=== PATIENT | female | born 1965 | race American Indian/Alaskan Native ===

== ENCOUNTER 2018-05-19 09:28 | Emergency (ER) | payer SELFPAY ==
--- NOTE | 2018-05-19 09:40 | Emergency Department Report ---
- General Stated complaint: HYPERTENSION/ALTERED MENTAL STATUS Time Seen by Provider: 05/19/18 09:30 Source: EMS Mode of arrival: Stretcher Limitations: Altered Mental Status - History of Present Illness Initial comments: Patient is a 52-year-old female presents to emergency room with generalized weakness, dry mouth, dizziness and restless leg. Patient answers all questions appropriately however patient is unable to remember all details and speak clearly. Patient denies chest pain/shortness of breath. Patient denies abdominal pain and fever. Patient denies diaphoresis. Patient states the symptoms started at 8:15. Per EMS patient was found to be tachycardic. MD Complaint: generalized weakness -: Sudden Location: generalized Severity: mild Consistency: constant Improves with: none Worsens with: none Associated Symptoms: confusion. denies: chest pain, dark stools, diaphoresis, dysuria, easy bruising, fever/chills, headaches, loss of appetite, nausea/ vomiting, myalgias, rash, shortness of breath, syncope - Related Data Home Medications Medication Instructions Recorded Confirmed Last Taken RX: No Known Home Medications [No 05/19/18 05/19/18 Unknown Reported Home Medications] Allergies Allergy/AdvReac Type Severity Reaction Status Date / Time No Known Allergies Allergy Unverified 05/19/18 09:40 ED Review of Systems ROS: Stated complaint: HYPERTENSION/ALTERED MENTAL STATUS Other details as noted in HPI Constitutional: weakness. denies: chills, fever Eyes: denies: eye pain, eye discharge, vision change ENT: denies: ear pain, throat pain Respiratory: denies: cough, shortness of breath, wheezing Cardiovascular: denies: chest pain, palpitations Endocrine: no symptoms reported, other (dry mouth) Gastrointestinal: denies: abdominal pain, nausea, diarrhea Genitourinary: denies: urgency, dysuria, discharge Musculoskeletal: denies: back pain, joint swelling, arthralgia Skin: denies: rash, lesions Neurological: weakness, vertigo. denies: headache, paresthesias Psychiatric: denies: anxiety, depression Hematological/Lymphatic: denies: easy bleeding, easy bruising ED Past Medical Hx - Past Medical History Previous Medical History?: No - Surgical History Past Surgical History?: No - Family History Family history: no significant - Social History Smoking Status: Never Smoker Substance Use Type: None - Medications Home Medications: Home Medications Medication Instructions Recorded Confirmed Last Taken Type RX: No Known Home Medications [No 05/19/18 05/19/18 Unknown History Reported Home Medications] ED Physical Exam - General Limitations: No Limitations General appearance: alert, in no apparent distress - Head Head exam: Present: atraumatic, normocephalic - Eye Eye exam: Present: normal appearance - ENT ENT exam: Present: mucous membranes moist - Neck Neck exam: Present: normal inspection - Respiratory Respiratory exam: Present: normal lung sounds bilaterally. Absent: respiratory distress - Cardiovascular Cardiovascular Exam: Present: regular rate, normal rhythm. Absent: systolic murmur, diastolic murmur, rubs, gallop - GI/Abdominal GI/Abdominal exam: Present: soft, normal bowel sounds - Extremities Exam Extremities exam: Present: normal inspection - Back Exam Back exam: Present: normal inspection - Neurological Exam Neurological exam: Present: alert, oriented X3 - Skin Skin exam: Present: warm, dry, intact, normal color. Absent: rash - Assessment Assessment Interval: Baseline - Level of Consciousness 1a. Level of Consciousness: alert - LOC Questions 1b. LOC Questions: answers correctly - LOC Command 1c. LOC Commands: performs tasks correctly - Best Gaze 2. Best Gaze: normal - Visual 3. Visual: no visual loss - Facial Palsy 4. Facial Palsy: normal symmetrical movement - Motor Arm 5b. Motor Arm Right: no drift 5a. Motor Arm Left: no drift - Motor Leg 6a. Motor Leg Left: no drift 6b. Motor Leg Right: amputation - Limb Ataxia 7. Limb Ataxia: absent - Sensory 8. Sensory: normal - Best Language 9. Best Language: no aphasia (score 1) - Dysarthria 10. Dysarthria: mild/moderate dysarthria - Extinction and Inattention 11. Extinction/Inattention: no abnormality ED Course Vital Signs 05/19/18 05/19/18 05/19/18 09:38 09:40 09:52 Temperature 97.5 F L Pulse Rate 121 H Respiratory 18 Rate Blood Pressure 155/83 Blood Pressure [Right] O2 Sat by Pulse 97 100 100 Oximetry 05/19/18 05/19/18 05/19/18 10:00 10:16 10:30 Temperature Pulse Rate 114 H 114 H 112 H Respiratory 10 L 14 14 Rate Blood Pressure Blood Pressure [Right] O2 Sat by Pulse 100 98 99 Oximetry 05/19/18 05/19/18 05/19/18 10:45 11:00 11:01 Temperature Pulse Rate 115 H 119 H Respiratory 14 18 Rate Blood Pressure 131/78 Blood Pressure 131/78 [Right] O2 Sat by Pulse 100 98 100 Oximetry 05/19/18 05/19/18 05/19/18 11:15 11:31 11:45 Temperature Pulse Rate Respiratory Rate Blood Pressure 131/78 131/78 131/78 Blood Pressure [Right] O2 Sat by Pulse 98 98 99 Oximetry 05/19/18 05/19/18 05/19/18 12:01 12:33 13:31 Temperature Pulse Rate 107 H Respiratory 18 Rate Blood Pressure 131/78 128/81 Blood Pressure 128/81 [Right] O2 Sat by Pulse 98 100 98 Oximetry - Reevaluation(s) Reevaluation #1: Due to the patient's complaints and symptoms, code stroke called. 05/19/18 09:30 - Consultations Consultation #1: tele- neuro consulted. Dr. Hawkins to see pt 05/19/18 10:30 Dr Hawkins thinks that this is transient global amnesia secondary to her vitamin supplement of nitric oxide. Round recommends admission and MRI. 05/19/18 11:15 Consultation #2: Posturals consult for admission. Hospitalist admit patient. Dr manzo to assume care. 05/19/18 12:00 ED Medical Decision Making - Lab Data Result diagrams: 05/19/18 10:06 05/19/18 10:06 - EKG Data -: EKG Interpreted by [facility] EKG shows normal: sinus rhythm, axis, intervals, QRS complexes, ST-T waves Rate: normal - Radiology Data Radiology results: report reviewed CT HEAD WITHOUT CONTRAST: HISTORY: Neurological deficit. TECHNIQUE: Sequential 2.5mm CT images. COMPARISON: none. FINDINGS: Cerebral Parenchyma: Within normal limits. Cerebellum: Within normal limits. Brainstem: Within normal limits. Ventricles: Normal. Sella: Normal. Extra-axial spaces: Normal. Basal Cisterns: Normal. Intracranial Hemorrhage: None. Midline Shift: None. Calvarium: Normal. Sinuses: Normal. Mastoid Air Cells: Normal. Visualized Orbits: Normal. IMPRESSION: Cranial CT scan within normal limits. These findings were discussed with Dr. Ortega in the emergency department at 0955 hours. Transcribed By: TTR Dictated By: AMINA KEENE JR, MD Electronically Authenticated By: AMINA KEENE JR, MD Signed Date/Time: 05/19/18 0956 - Medical Decision Making She is a 52-year-old female presents to emergency room for weakness and dizziness. Patient found to have transient global amnesia secondary to a over- the-counter supplements. Neurology was consulted and gave instructions and recommendations. Patient to be admitted to hospitalist service for further evaluation treatment. - Differential Diagnosis cva. dizziness, weakness. Critical Care Time: Yes Critical care attestation.: If time is entered above; I have spent that time in minutes in the direct care of this critically ill patient, excluding procedure time. Critical Care Time: 35 minutes for cc time ED Disposition Clinical Impression: Transient global amnesia, Dizziness, Weakness Disposition: -09 OP ADMIT IP TO THIS HOSP Is pt being admited?: Yes Does the pt Need Aspirin: No Condition: Critical Time of Disposition: 11:18
--- NOTE | 2018-05-19 10:02 | Cat Scan Report ---
CT HEAD WITHOUT CONTRAST: HISTORY: Neurological deficit. TECHNIQUE: Sequential 2.5mm CT images. COMPARISON: none. FINDINGS: Cerebral Parenchyma: Within normal limits. Cerebellum: Within normal limits. Brainstem: Within normal limits. Ventricles: Normal. Sella: Normal. Extra-axial spaces: Normal. Basal Cisterns: Normal. Intracranial Hemorrhage: None. Midline Shift: None. Calvarium: Normal. Sinuses: Normal. Mastoid Air Cells: Normal. Visualized Orbits: Normal. IMPRESSION: Cranial CT scan within normal limits. These findings were discussed with Dr. Ortega in the emergency department at 0955 hours.
[2018-05-19 10:30] LABS: Basophils % (Auto) 0.5 % (0.0-1.8); Eosinophils % (Auto) 0.6 % (0.0-4.3); Hematocrit 37.1 % (30.3-42.9); Hemoglobin 12.3 gm/dl (10.1-14.3); Lymphocytes # (Auto) 1.5 K/mm3 (1.2-5.4); Lymphocytes % (Auto) 24.6 % (13.4-35.0); Mean Corpuscular HGB Conc 33 % (30-34); Mean Corpuscular Hemoglobin 27 pg (28-32); Mean Corpuscular Volume 82 fl (79-97); Monocytes # (Auto) 0.4 K/mm3 (0.0-0.8); Monocytes % (Auto) 6.4 % (0.0-7.3); Platelet Count 178 K/mm3 (140-440); Red Blood Count 4.52 M/mm3 (3.65-5.03); Red Cell Distribution Width 14.1 % (13.2-15.2)
[2018-05-19 10:44] LABS: INR 0.82 (0.87-1.13)
[2018-05-19 10:45] LABS: Partial Thromboplastin Time 27.9 Sec. (24.2-36.6)
[2018-05-19 10:50] LABS: Thrombin Time 15.5 Sec. (15.1-19.6)
[2018-05-19 10:51] LABS: BUN/Creatinine Ratio 17; Blood Urea Nitrogen 10 mg/dL (7-17); Calcium 9.2 mg/dL (8.4-10.2); Hemolysis Index 40
[2018-05-19 12:02] LABS: Bilirubin,Urine NEG (Negative); Blood,Urine NEG (Negative); Color,Urine Straw (Yellow); Mucus,Urine FEW /HPF; Protein,Urine <15 mg/dL mg/dL (Negative); Urobilinogen,Urine < 2.0 mg/dL (<2.0)
--- NOTE | 2018-05-19 12:50 | History and Physical Report ---
Medications and Allergies Allergies Allergy/AdvReac Type Severity Reaction Status Date / Time No Known Allergies Allergy Unverified 05/19/18 09:40 Exam - Constitutional Vitals: Temp Pulse Resp BP Pulse Ox 97.5 F L 119 H 18 131/78 98 05/19/18 09:40 05/19/18 11:00 05/19/18 11:00 05/19/18 12:01 05/19/18 12:01 Results - Labs CBC & Chem 7: 05/19/18 10:06 05/19/18 10:06 Labs: Abnormal lab results 05/19/18 05/19/18 05/19/18 Range/Units 10:06 10:06 10:06 MCH 27 L (28-32) pg PT 11.7 L (12.2-14.9) Sec. INR 0.82 L (0.87-1.13) Creatinine 0.6 L (0.7-1.2) mg/dL Glucose 140 H (65-100) mg/dL
[2018-05-19 12:51] LABS: Amphetamine Screen,Urine PRESUMPTIVE NEGATIVE; Benzodiazepines Screen,Urine PRESUMPTIVE NEGATIVE; Cocaine Screen,Urine PRESUMPTIVE NEGATIVE; Methadone Screen,Urine PRESUMPTIVE NEGATIVE; Opiate Screen,Urine PRESUMPTIVE NEGATIVE
[2018-05-19 13:07] LABS: Cannabinoid Screen,Urine PRESUMPTIVE POSITIVE
--- NOTE | 2018-05-19 15:42 | Magnetic Resonance Report ---
MRI OF THE BRAIN WITHOUT CONTRAST: HISTORY: Amnesia PROCEDURE: Multiplanar, multisequence MR imaging of the brain without IV contrast was performed. FINDINGS: The brain parenchyma signal intensity and its martinez white interface are within normal limits on all sequences. No evidence for acute ischemia, hemorrhage or mass. No chronic infarct or extra-axial fluid collection. The midline structures are central. The basal cisterns are patent. Normal ventricular size. The orbital cavities and sella turcica demonstrate no abnormality. The visualized paranasal sinuses and mastoid air cells are well aerated. IMPRESSION: Unremarkable non-enhanced MRI of the brain.
[2018-05-19 16:44] VITALS: BP 128/88
== END 2018-05-19 16:44 | disposition admitted as inpatient to this hospital (09) ==
LOC: ED 09:28
DX: G45.4 Transient global amnesia (principal); R53.1 Weakness; R42 Dizziness and giddiness; R68.2 Dry mouth, unspecified; R00.0 Tachycardia, unspecified; F41.9 Anxiety disorder, unspecified; Z79.899 Other long term (current) drug therapy
CPT/HCPCS: 36415; 70450; 70551; 80048; 80307; 81001; 84484; 85025; 85610; 85670; 85730; 93005; 93010